=== PATIENT | male | born 1970 | race Caucasian/White ===

== ENCOUNTER 2019-11-30 13:37 | Outpatient (CLI) | payer OTHER ==
--- NOTE | 2019-12-01 08:36 | MRI Report ---
Reason: RT SHOULDER PAIN Procedure Date: 11/30/2019 Accession Number: [id number] / [id number] Procedure: MRI - Shoulder RT W/O CPT Code: Final Report FULL RESULT: EXAM: RIGHT SHOULDER MRI WITHOUT CONTRAST EXAM DATE: 11/30/2019 02:38 PM. CLINICAL HISTORY: Right shoulder pain COMPARISON: None. TECHNIQUE: Multiplanar, multisequence T1-weighted and fluid-sensitive sequences of the shoulder without contrast. Other: None. FINDINGS: Acromioclavicular Region: The acromion is type II. The acromioclavicular joint is unremarkable. The coracoacromial and coracoclavicular ligaments are intact. Small amount of fluid within the subacromial-subdeltoid bursa. Glenohumeral Region: No subluxation. No effusion or loose bodies. The articular cartilage is unremarkable. The joint capsule is thickened at the axillary recess with pericapsular edema. There is also edema at the rotator interval with thickening of the superior glenohumeral ligament. The middle glenohumeral ligament and inferior glenohumeral ligament are intact and normal. Bone Marrow: No fracture, marrow edema or bone lesions. Labrum: The labrum is unremarkable on this nonarthrographic study. Musculature/Rotator Cuff: The subscapularis, supraspinatus, infraspinatus, and teres minor tendons are intact. No edema or fatty atrophy. Biceps Tendon: The long head of the biceps tendon and biceps tierra are intact. Other: The subcutaneous tissues are unremarkable. IMPRESSION: 1. Capsular thickening and pericapsular edema, findings that can be seen in the setting of adhesive capsulitis. 2. Intact rotator cuff tendons. 3. Mild subacromial-subdeltoid bursitis. RADIA
== END 2019-11-30 13:38 | disposition home or self-care (01) ==
LOC: DI 13:37
PROVIDERS: ATTEND Physician Assistant
DX: M75.51 Bursitis of right shoulder (principal); R60.0 Localized edema

== ENCOUNTER 2020-02-12 13:28 | Outpatient (CLI) | payer OTHER ==
[~2020-02-12 13:28] MED LIST: BUFFERED LIDOCAINE 10 ML SYRINGE ONE; GADOBUTROL 7.5 MMOL/7.5 ML VIAL ONE
[2020-02-12] MEDS ORDERED: BUFFERED LIDOCAINE 10 ML SYRINGE IU ONE (15:10)
[2020-02-12] MEDS ORDERED: GADOBUTROL 7.5 MMOL/7.5 ML VIAL IVP ONE (15:11)
[2020-02-12] MEDS ORDERED: iohexoL-240 10 ML VIAL IVP ONE (15:13)
--- NOTE | 2020-02-12 16:34 | XRAY Report ---
Reason: PAIN LEFT KNEE Procedure Date: 02/12/2020 Accession Number: [id number] / [id number] Procedure: FL - Arthrogram Needle Placement CPT Code: Final Report FULL RESULT: PROCEDURE: Arthrogram Needle Placement INDICATIONS: PAIN LEFT KNEE CONTRAST: CONTRAST: GADAVIST/ OMNI FLUORO TIME: FLUORO TIME: 0:08 MIN and NUMBER IMAGES: 3 TECHNIQUE: The indications, alternatives, benefits, risks, and complications of the procedure were explained to the patient. Written informed consent was obtained and placed in the chart. The knee was examined fluoroscopically, and a site chosen for knee joint injection. The skin was prepped and draped in the usual fashion and 1% Lidocaine infiltrated from the skin down to the articular surface. A hypodermic needle was then introduced into the joint and iodinated contrast media was instilled to confirm the intra-articular needle tip placement. This was followed by approximately 50 mL dilute solution of a gadolinium containing MR contrast agent. The needle was removed and a bandage was applied. An Anjum wrap was then applied around the knee joint to keep the contrast from collecting in the suprapatellar recess. The patient experienced no complications throughout the procedure and left the fluoroscopic suite in no apparent distress. FINDINGS: Single fluoroscopic spot image demonstrates intra-articular location to injected iodinated contrast. IMPRESSION: Successful fluoroscopically guided administration of dilute Gadolinium solution into the knee joint for MR arthrogram. Reviewed by: Bekah Streeter MD on 02/12/2020 4:33 PM PDT Approved by: Bekah Streeter MD on 02/12/2020 4:33 PM PDT Station ID: [id number]
--- NOTE | 2020-02-12 17:03 | MRI Report ---
PROCEDURE: Arthrogram Knee LT INDICATIONS: PAIN LEFT KNEE CONTRAST: Dilute intra-articular gadolinium TECHNIQUE: After the administration of 50 mL of dilute intra-articular Gadolinium contrast, sagittal T1 spin ech o with fat saturation and PD fast spin echo with fat saturation, coronal T1 spin echo with and withou t fat saturation, coronal T2 fast spin echo with fat saturation, axial PD fast spin echo with fat sat uration through the knee. COMPARISON: None FINDINGS: Image quality: Diagnostic. Menisci: Amorphous high signal intensity within the medial meniscal body is present without articular surface extension. There is linear horizontally oriented high T1 signal intensity within the anterio r horn lateral meniscus demonstrating superior articular surface extension, indicating horizontal tea ring. Cruciate ligaments: The anterior cruciate ligament graft and posterior cruciate ligaments appear int act. Medial structures: The medial collateral ligament appears intact. The posterior oblique ligament, s emimembranosus tendon insertions, and oblique popliteal ligament, and meniscocapsular junction appear intact. Visualized portions of the pes anserinus tendons appear normal. No abnormal bursal fluid. Lateral structures: The lateral collateral ligament, long and short heads of the biceps femoris tend on appear intact. The popliteus tendon appears normal; the popliteofibular ligament appears intact. The posterosuperior and anteroinferior popliteomeniscal fascicles appear intact. The arcuate and fa bellofibular ligaments appear intact, around the lateral inferior geniculate artery. Iliotibial band appears normal. Anterior structures: The quadriceps and patellar tendons appear intact. Patellar tendon harvest has been performed. Patellar alignment is normal. No femoral trochlear dysplasia or ventral trochlear p rominence. No edema in the infrapatellar fat pad. Bones and cartilage: No fracture. There is mild tricompartmental periarticular osteophyte formation. Mild diffuse articular cartilage loss overlies the weightbearing aspects of the medial femoral condyl e and medial tibial plateau. Mild to moderate articular cartilage loss overlies the medial and latera l patellofemoral compartments. Joint space: [place]?s cyst. Normal appearing synovial plicae are incidentally noted. No suspic ious soft tissue enhancement. IMPRESSION: 1. Intact ACL graft. 2. Lateral meniscal tear. 3. Tricompartmental osteoarthritis. Reviewed by: Bekah Streeter MD on 02/12/2020 5:02 PM PDT Approved by: Bekah Streeter MD on 02/12/2020 5:02 PM PDT Station ID: [id number]
== END 2020-02-12 13:29 | disposition home or self-care (01) ==
LOC: DI 13:28
PROVIDERS: ATTEND Physician Assistant
DX: S83.282A Other tear of lateral meniscus, current injury, left knee, initial encounter (principal); M17.12 Unilateral primary osteoarthritis, left knee
CPT/HCPCS: 27369; 73722; 77002; A9585